=== PATIENT | female | born 1975 | race Caucasian/White ===

== ENCOUNTER → 2018-12-27 08:18 | Outpatient (CLI) | payer OTHER, SELFPAY ==
--- NOTE | 2018-12-27 08:27 | MR_ITS ---
MR lumbar spine wo/w con, MR 3-d myelogram/MRCP HISTORY: HX back surgery 2017. LBP with bilateral leg pain, numbness, and tingling. ITS.REASON: RADICULOPATHY ORDERING PHYSICIAN: Lalito Cisneros PATIENT AGE: 43 years Comparison: None TECHNIQUE: Standard multiplanar multiecho sequences are performed without and with gadolinium enhancement contrast. 3-D MIP and myelographic images are also rendered and reviewed FINDINGS: There are no previous exams available for comparison. There is normal alignment. The spinal cord is at the L1 level. L1-L2: Minimal left paracentral disc protrusion. L2-L3: Unremarkable. L3-L4: Minimal bulging disc with mild facet and ligamentum hypertrophy L4-L5: Unremarkable. L5-S1: Prior right laminectomy. There is heterogeneous isointense T1 signal centrally and in the right paracentral region of the anterior epidural space as well as the right laminectomy defect. These areas do demonstrate mild contrast enhancement consistent with epidural fibrotic changes which are medial to the right S1 nerve root. There is some minimal central disc protrusion slightly eccentric to the left. No evidence of epidural abscess IMPRESSION: 1. Postsurgical changes at L5-S1 with findings consistent with epidural fibrosis centrally and on the right 2. Small residual central disc protrusion slightly eccentric to the left at L5-S1. 3. Minimal bulging disc at L4-5.
--- NOTE | 2018-12-27 09:22 | HMH.ITSHM ---
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 []GABAPENTIN IBUPROPHEN
== END ==
PROVIDERS: Visit Provider Orthopaedic Surgery
DX: M54.16 Radiculopathy, lumbar region (principal)
CPT/HCPCS: 72158; 76376; A9576

== ENCOUNTER → 2019-08-09 17:01 | Outpatient (CLI) | payer OTHER, SELFPAY ==
[2019-08-09 22:34] LABS: Chloride 102 mmol/L (98-107); Potassium 5.1 mmoL/L (3.5-5.1); Sodium 136 mmol/L (136-145)
[2019-08-09 22:36] LABS: Alanine Aminotransferase 29 U/L (12-78); Aspartate Amino Transferase 29 U/L (14-36); Bilirubin,Unconjugated 0.3 mg/dL (0.0-1.1); Blood Urea Nitrogen 12 mg/dl (7-17); Estimated Glomerular Filt Rate 109 ml/min (>60); GFR (African American) 131 ML/MIN (>60)
[2019-08-09 22:37] LABS: Albumin Level 4.2 g/dl (3.5-5.0); Alkaline Phosphatase 70 U/L (38-126); Anion Gap 14.1 mEq/L (5-15); Bilirubin,Indirect 0.3 mg/dL (0.0-0.9); Bilirubin,Total 0.3 mg/dl (0.2-1.3); Calcium 11.1 mg/dl (8.4-10.2); Carbon Dioxide 25 mmol/L (22.0-30.0); Chol/HDL Ratio 5.9 (1-3.5); Cholesterol 275 mg/dl (140-200); Glucose 83 mg/dl (74-100); HDL Cholesterol 47 mg/dl (40-60); Total Protein,Serum 7.7 g/dl (6.3-8.2); Triglycerides 195 mg/dl (30-150); VLDL Cholesterol 39 mg/dL (0-40)
[2019-08-09 22:48] LABS: Direct LDL Cholesterol 200.77 mg/dL (100-129)
[2019-08-09 23:07] LABS: Thyroid Stimulating Hormone 0.88 uIU/mL (0.465-4.68)
== END ==
PROVIDERS: Visit Provider Nurse Practitioner Family
DX: R10.11 Right upper quadrant pain (principal); R11.2 Nausea with vomiting, unspecified; Z72.0 Tobacco use
CPT/HCPCS: 80048; 80061; 80076; 84443

== ENCOUNTER → 2019-11-10 09:58 | Outpatient (CLI) | payer OTHER, SELFPAY ==
[2019-11-10 11:37] LABS: Coronavirus 19 IgG Antibody Negative (Negative); Coronavirus 19 IgM Antibody Negative (Negative)
== END ==
PROVIDERS: Visit Provider Internal Medicine Gastroenterology
DX: Z03.818 Encounter for observation for suspected exposure to other biological agents ruled out (principal)
CPT/HCPCS: 36415; 86328

== ENCOUNTER 2019-11-11 10:56 | Day surgery (SDC) | payer OTHER, SELFPAY ==
--- NOTE | 2019-11-08 13:13 | SUR.PREOP ---
11/08/2019--PHONE CALL MADE TO PATIENT. PATIENT UNDERSTANDS THAT LAB WORK AND COVID TESTING NEEDS TO BE COMPLETED @ 0900 ON 11/10/2019. PATIENT UNDERSTANDS IF LAB WORK AND COVID-19 TESTS ARE NOT COMPLETED BY 12PM ON THAT DATE, THE SURGERY SCHEDULED WILL BE CANCELLED AND RESCHEDULED FOR ANOTHER TIME.
[2019-11-08 14:02] VITALS: BMI 24.7
[2019-11-11] VITALS (7 sets, daily range): BP systolic 122–159; BP diastolic 81–109; PULSE 68–94; RESP 18; TEMP 36.2–36.6; O2SAT 97–100
[2019-11-11 11:59] LABS: Urine Pregnancy, HCG Qual. Negative (Negative)
--- NOTE | 2019-11-11 12:02 | FL_ITS ---
PROCEDURE: FL ERCP CLINICAL INDICATION: ruq pain Fluoro time: 1 minutes 38 seconds. COMPARISON: No exams were available for comparison FINDINGS: Six intraoperative fluoro images were obtained. The 1st image demonstrate endoscope into the duodenum with cannulation of the CBD. Cholecystectomy clips are seen. Subsequent images demonstrate contrast injection with cholangiography. Dilatation of the biliary ductal system is evident. No intraluminal filling defects are seen in the CBD to suggest choledocholithiasis. Final images showed transit of the contrast material into the duodenal sweep without evidence of obstruction. IMPRESSION: Intraoperative cholangiogram demonstrate biliary ductal dilatation. Dictated by: Angie Maciel 01/19/2020 16:09 Electronically signed by Angie Maciel in [place] 01/19/2020 16:09
--- NOTE | 2019-11-11 13:02 | P.PN_ITS ---
[facility] Anesthesia Checklist - Patient Identification Patient Identification: Arm Band, Verbal (Name & ) - Structural Data Admitted From: Home Planned Operative Procedure/s: ERCP Consent for Planned Operative Procedure(s) Verified: Yes Verified Documents: Surgical Consent, History and Physical - NPO Status Verified Time NPO: 00:00 - Chart Verification Results Verified: CBC (serology negative COVID-19), HCG - Additional verifications Patient : No Anesthesia Reactions: No - Airway Assessment C-Spine Mobility Assessed: Yes TMJ Mobility Assessed: Yes Dentition: Good Dentition (Missing) - Neurological Assessment Level of Consciousness: Awake, Alert, Appropriate, Follows Commands Hx Seizures: No Numbness or tingling in extremities: Yes (Sciatic Nerve pain) - Anesthesia Plan Anesthesia Risk discussed: Yes Anesthesia Plan: Verified ASA Class: II Anesthesia Type: MAC [facility] History I have reviewed the patient's past medical history: Yes Medical History: Reports:: Gall Bladder Disease, Hyperlipidemia Denies:: Cancer, Diabetes Mellitus Type 1, Diabetes Mellitus Type 2, Internal Pacemaker, MRSA, Seizures *Have you ever received a pneumonia vaccine?: No *Have you received a flu vaccine this season?: No Comment:: Chronic sciatic nerve pain Anesthesia experience/problems:: None Other Surgeries: Yes: Cholecystectomy, Tubal Ligation, Other. No: Pacemaker Amputation: No Fractures: No - *Social History Smoking Status: Current every day smoker Tobacco Type: cigarettes # Packs/Day (cigarettes): 1 Alcohol Intake: never Alcohol Intake Frequency:: holidays/special occasions only Substance Use Type: denies use *Occupational Status:: employed Housing: house Household Members: family *Travel in the last 8 weeks: None Family Hx:: No significant family history
--- NOTE | 2019-11-11 13:17 | P.PCN_ITS ---
[facility] Procedure Note Procedure Note:: ERCP procedure Report: Endoscopic retrograde cholangiopancreatography with biliary sphincterotomy and balloon extraction Endoscopist: Davis Tineo II, MD Referring Physician: Chintan Mcintyre MD/Candido CASIANO Date of Procedure: November 11, 2019 Equipment: Olympus 180 side viewing endoscope duodenoscope Sedation: MAC sedation Indication: Mrs. Peralta is a 44-year-old female with right upper quadrant abdominal pain radiating into the right flank. She has been on Tylenol with codeine for the last 2.5 years. She also takes ibuprofen and gabapentin. The patient did have an ultrasound and CAT scan of the abdomen. Her CAT scan showed intra-and extrahepatic biliary ductal dilation as well as some prominence of the pancreatic duct. Her MRCP showed biliary ductal dilation. She does have small hepatic hemangiomas. The patient has had normal liver chemistries. She reports no acholic stools, jaundice or icterus. She did have a high fever and illness 12 weeks ago. Procedure: Prior to the procedure, a history and physical exam was performed, and patient's medications and allergies were reviewed. The risks, benefits and alternatives of the sedation and procedure were discussed with the patient. All questions were answered and informed consent was obtained. The patient was brought to the fluoroscopic radiology room. Patient identification and proposed procedure were verified by the physician and the nurse. The patient was placed in a swimmer's position between left lateral decubitus and prone position and the scope was passed under direct vision. Throughout the procedure, the patient's blood pressure, pulse, and oxygen saturations were monitored continuously. The ERCP w as accomplished without difficulty. The patient tolerated the procedure well. Findings: The side-viewing duodenal scope was passed directly into the upper esophagus and advanced to the second portion of the duodenum. There was some peptic duodenal reflux with reactive gastropathy. The ampulla was covered with overlying fold. After moving the fold, the common bile duct was eventually freely cannulated with the guidewire. This was a tight ampulla and initially difficult to cannulate. The cholangiogram did show a dilated biliary system with a common bile duct that was approximately 12 to 13 mm in maximal diameter. There was some dilation of the intrahepatic biliary system that was mild. The cystic duct stump was normal. There was delayed drainage of contrast and bile from the biliary system. A biliary sphincterotomy was performed with eventual extravasation of bile and contrast. There was flakes of small yellow debris//sludge (minor choledocholithiasis) that extravasated with the bile. A 9 to 12 mm sweeping balloon was placed at the hilum and swept through the biliary system with the passage of bile and contrast and there was some yellow sludge that caked the balloon. There was excellent decompression of the biliary system. The pancreatic duct was not cannulated intentionally. The procedure was then ended. 2 Indocin suppositories were placed subsequent to the proc edure. Impression: 1. 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 I will discuss findings with patient and family.
== END 2019-11-11 15:00 | disposition home or self-care (01) ==
LOC: OUTP 10:59
PROVIDERS: PCP Emergency Medicine; Visit Provider Internal Medicine Gastroenterology
PROC: (CPT 43262; principal; 2019-11-11 12:00)
DX: Z79.1 Long term (current) use of non-steroidal anti-inflammatories (NSAID) (principal); K83.4 Spasm of sphincter of Oddi; K80.51 Calculus of bile duct without cholangitis or cholecystitis with obstruction; E78.5 Hyperlipidemia, unspecified; Z88.0 Allergy status to penicillin; Z72.0 Tobacco use
CPT/HCPCS: 43262; 43264; 74330; 81025; Q9967

== ENCOUNTER → 2020-03-15 18:36 | Outpatient (CLI) | payer OTHER, SELFPAY ==
[2020-03-15 18:56] LABS: Basophils % 0.5 % (0.1-2.0); Eosinophils # 0.3 K/mm3 (0.0-0.4); Eosinophils % 4.2 % (0.1-12.0); Hematocrit 45.2 % (37.0-47.0); Hemoglobin 15.5 g/dL (12.2-16.2); Lymphocytes # 2.2 K/mm3 (0.7-4.5); Lymphocytes % 26.9 % (10-50); Mean Corpuscular HGB Conc 34.2 g/dL (31.8-35.4); Mean Corpuscular Hemoglobin 33.2 pg (27.0-31.2); Mean Platelet Volume 7.9 fl (7.4-10.4); Monocytes # 0.5 K/mm3 (0.1-1.0); Monocytes % 6.1 % (1.7-9.3); Neutrophils % 62.3 % (37.0-80.0); Platelet Count 364 K/mm3 (142-424); Red Blood Count 4.66 M/mm3 (4.20-5.40); Red Cell Distribution Width 12.8 % (11.5-17.5)
[2020-03-15 19:04] LABS: Alanine Aminotransferase 19 U/L (12-78); Albumin Level 4.4 g/dl (3.5-5.0); Albumin/Globulin Ratio 1.2 (1.1-1.8); Alkaline Phosphatase 75 U/L (38-126); Anion Gap 11.5 mEq/L (5-15); Aspartate Amino Transferase 37 U/L (14-36); Bilirubin,Total 0.5 mg/dl (0.2-1.3); Blood Urea Nitrogen 14 mg/dl (7-17); Calcium 11.9 mg/dl (8.4-10.2); Carbon Dioxide 27 mmol/L (22.0-30.0); Chloride 103 mmol/L (98-107); Estimated Glomerular Filt Rate 90 ml/min (>60); GFR (African American) 109 ML/MIN (>60); Globulin 3.6 g/dL (1.3-3.2); Glucose 99 mg/dl (74-100); Potassium 4.5 mmoL/L (3.5-5.1); Sodium 137 mmol/L (136-145)
[2020-03-15 19:21] LABS: Free T4 (Free Thyroxine) 1.18 ng/dl (0.78-2.19)
[2020-03-15 19:36] LABS: Thyroid Stimulating Hormone 0.74 uIU/mL (0.465-4.68)
[2020-03-15 19:55] LABS: Vitamin B12 307 pg/mL (239-931)
== END ==
PROVIDERS: Visit Provider Nurse Practitioner Family
DX: R25.2 Cramp and spasm (principal); R51 Headache; Z79.899 Other long term (current) drug therapy
CPT/HCPCS: 80053; 82607; 84439; 84443; 85025

== ENCOUNTER → 2022-12-25 14:12 | Outpatient (CLI) | payer OTHER, SELFPAY ==
--- NOTE | 2022-12-25 14:14 | US_ITS ---
PROCEDURE: US TRANSVAGINAL CLINICAL INDICATION: abnormal uterine and vaginal bleeding COMPARISON: No exams were available for comparison FINDINGS: UTERUS: 8cm x 5cmx 4cm with a combined endometrial thickness of 6.1mm. There is a 1.5 cm x 1.0 cm nabothian cyst. There is a 1 cm posterior fibroid within the myometrium.. LEFT OVARY: [id number] with a volume of 11.1ml.There are several follicles within the left ovary the largest of which is 1.5 cm x 1.3 cm. RIGHT OVARY: 3cmx [id number] with a volume of 9.6ml. There is a dominant follicle in the right ovary measuring 2.3 cm x 1.5 cm Both ovaries are seen and appear normal. Doppler flow to both ovaries are seen. There is no fluid in the cul-de-sac. IMPRESSION: 1. Uterus is anteverted and normal in shape and size. The endometrium is 6.1 mm. There is a 1.5 cm nabothian cyst in the cervix. There is a 1 cm posterior fibroid in the myometrium. 2. Both ovaries are seen and appear normal. There are several follicles on the left ovary and a dominant follicle on the right ovary. 3. No fluid in the cul-de-sac. Dictated by: Matthew Franco MD 12/26/2022 11:44 Matthew Franco MD in [facility] 12/26/2022 11:44
[2022-12-25 16:31] LABS: Thyroid Stimulating Hormone 0.42 uIU/mL (0.465-4.68)
== END ==
PROVIDERS: PCP Emergency Medicine; Visit Provider Obstetrics & Gynecology
DX: N93.9 Abnormal uterine and vaginal bleeding, unspecified (principal)
CPT/HCPCS: 36415; 76830; 84443